=== PATIENT | male | born 1950 | race Caucasian/White ===

== ENCOUNTER 2019-04-26 09:29 | Outpatient (CLI) | payer MEDICARE, OTHER | END 2019-04-26 09:30 | disposition critical access hospital (66) | LOC: EMS 09:29 | PROVIDERS: ATTEND Surgery | DX: S09.93XA Unspecified injury of face, initial encounter (principal); R20.0 Anesthesia of skin; W01.0XXA Fall on same level from slipping, tripping and stumbling without subsequent striking against object, initial encounter; Y93.01 Activity, walking, marching and hiking; Y92.89 Other specified places as the place of occurrence of the external cause | CPT/HCPCS: A0425; A0429 ==

== ENCOUNTER 2019-04-26 09:34 | Emergency (ER) | payer MEDICARE, OTHER ==
--- NOTE | 2019-04-26 10:02 | ED Physician Documentation ---
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 No: LOC Contributing factors: No: Anticoagulated Similar symptoms before: Has not had sx before - Additional information Additional information: The patient is a 68-year-old male who arrives via ambulance after tripping while walking on the [facility], impacting his head on a piling. He did not lose consciousness, but reports that he "saw stars." Initially he experienced paralysis and paresthesias of his legs and hands. His symptoms have been gradually improving since the incident occurred about 1/2-hour prior to arrival. He denies headache or neck pain. Past surgical history is significant for spinal fusion of C5-T1. He has a nerve stimulator in place. He is visiting here from [place]. Review of Systems Constitutional: denies: Fever Eyes: denies: Decreased vision Ears: denies: Tinnitus/ringing Nose: denies: Congestion Throat: denies: Sore throat Cardiac: denies: Chest pain / pressure Respiratory: denies: Dyspnea, Cough GI: denies: Abdominal Pain, Nausea, Vomiting : denies: Dysuria, Incontinent Skin: reports: Abrasion (s) (nose) Musculoskeletal: reports: Extremity pain (elbows). denies: Neck pain, Back pain Neurologic: reports: Generalized weakness, Head injury. denies: Seizure, Confused, Headache, LOC PD PAST MEDICAL HISTORY - Present Medications Home Medications: Ambulatory Orders Medication Instructions Recorded Confirmed Aspirin 81 mg PO DAILY 04/26/19 04/26/19 Atorvastatin [Lipitor] 10 mg PO DAILY 04/26/19 04/26/19 Cetirizine [ZyrTEC] 10 mg PO DAILY 04/26/19 04/26/19 DULoxetine [Cymbalta] 60 mg PO DAILY 04/26/19 04/26/19 Omeprazole 40 mg PO DAILY 04/26/19 04/26/19 Oxybutynin [Ditropan] 5 mg PO DAILY 04/26/19 04/26/19 Pregabalin [Lyrica] 150 mg PO BID 04/26/19 04/26/19 Spironolactone 25 mg PO DAILY 04/26/19 04/26/19 - Allergies Allergies/Adverse Reactions: Allergies Allergy/AdvReac Type Severity Reaction Status Date / Time cephalexin Allergy Rash Verified 04/26/19 10:21 PD ED PE NORMAL - Vitals Vital signs reviewed: Yes (hypertensive) - General General: Alert and oriented X 3, Well developed/nourished, Other (Arrives on a backboard with cervical immobilization.) - HEENT HEENT: PERRL, EOMI, Ears normal, Pharynx benign, Other (There is dried blood on the face, having come from the nose. There is tenderness to palpation of the nasal bridge. There is no septal hematoma.) - Neck Neck: No bony TTP, No adenopathy, No JVD - Cardiac Cardiac: RRR - Respiratory Respiratory: No respiratory distress, Clear bilaterally, Other (No chest wall tenderness.) - Abdomen Abdomen: Soft, Non tender - Back Back: No CVA TTP, No spinal TTP - Derm Derm: No rash - Extremities Extremities: No tenderness to palpate, No edema, No calf tenderness / cord - Neuro Neuro: Alert and oriented X 3, roving tester laboratory 2-12 intact, Normal speech, Other (There is slightly decreased strength in the lower extremities, right slightly more than the left. There is slightly decreased light touch sensation, as well as slightly diminished strength, of his upper extremities.) Eye Opening: Spontaneous Motor: Obeys Commands Verbal: Oriented GCS Score: 15 Results - Vitals Vitals: Vital Signs - 24 hr 04/26/19 04/26/19 04/26/19 09:41 10:10 12:00 Temperature 36.0 C L Heart Rate 67 77 81 Respiratory 20 18 18 Rate Blood Pressure 152/88 H 146/88 H 131/77 H O2 Saturation 98 98 98 04/26/19 14:00 Temperature Heart Rate 71 Respiratory 18 Rate Blood Pressure 117/82 H O2 Saturation 100 Oxygen O2 Source Room air - EKG (time done) 10"03 Rate: Rate (enter#) (62) Rhythm: NSR [place]: Normal Intervals: Normal SD QRS: Normal Ischemia: Normal ST segments Computer interpretation: Agree with computer - Labs Labs: Laboratory Tests 09/30/19 09/30/19 10:10 10:10 WBC 8.3 RBC 5.02 Hgb 14.9 Hct 45.0 MCV 89.6 MCH 29.7 MCHC 33.1 RDW 13.4 Plt Count 212 MPV 9.9 Neut # (Auto) 5.5 Lymph # (Auto) 1.5 [place] # (Auto) 0.9 Eos # (Auto) 0.3 Baso # (Auto) 0.1 Absolute Nucleated RBC 0.00 Nucleated RBC % 0.0 Sodium 140 Potassium 4.5 Chloride 106 Carbon Dioxide 25 Anion Gap 9.0 BUN 21 H Creatinine 1.1 Estimated GFR (MDRD) 67 L Glucose 120 H Calcium 8.9 Total Bilirubin 1.0 AST 28 ALT 33 Alkaline Phosphatase 65 Total Protein 6.4 L Albumin 3.9 Globulin 2.5 Albumin/Globulin Ratio 1.6 Lipase 29 - Rads (name of study) Head CT Radiology: Prelim report reviewed, EMP read contemporaneously, See rad report (Comminuted nasal bone fracture. Otherwise negative examination. No intracranial abnormality.) CT C-spine Radiology: Prelim report reviewed, EMP read contemporaneously, See rad report (Question of a subtle fracture of osteophyte at the anterior base of C3. Elsewhere, degenerative changes are seen as above.) PD MEDICAL DECISION MAKING - ED course Complexity details: reviewed results, re-evaluated patient, considered differential, d/w patient, d/w family, d/w regional engagement consultant ED course: The patient's presentation is significant for fall with cervical hyperextension injury, with initial paralysis of all extremities. Although his neurologic deficits have greatly improved in the short time since the injury, he continues to have decreased strength in the bilateral upper and lower extremities, as well as decreased light touch sensatio in his hands. CT scan of his cervical spine reveals a possible stable osteophyte fracture at the base of C3, but no other acute bony abnormality. CT of his head reveals no acute intracranial abnormality, although it does reveal comminuted nasal bone fracture. Treatment in the emergency department included administration of morphine 4 mg IV. This improved the discomfort in her shoulders. I discussed the patient's condition with Dr. Lee, neurosurgeon at [facility]. He advises that the patient be transferred to [facility] for further evaluation and treatment. 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 Transfer forms were completed. On reexamination his neurologic deficits have continued to improve, with ability to move all extremities although with decreased strength. Light touch sensation remains mildly diminished in his hands. Prior to transfer the patient was administered Ativan 1 mg orally to help diminish his concern for claustrophobia in the back of the ambulance during transport to [facility]. Departure - Departure Disposition: 02 Transfer Acute Care Hosp Clinical Impression: Spinal cord contusion Fracture of nasal bone Qualifiers: Encounter type: initial encounter Fracture type: closed Qualified Code(s): S02.2XXA - Fracture of nasal bones, initial encounter for closed fracture Condition: Stable Discharge Date/Time: 04/26/19 15:15
[2019-04-26 10:15] LABS: BASOPHILS # (AUTO) 0.1 10^3/uL (0.0-0.1); BASOPHILS % (AUTO) 0.7 %; EOSINOPHILS # (AUTO) 0.3 10^3/uL (0.0-0.7); EOSINOPHILS % (AUTO) 3.6 %; HGB - HEMOGLOBIN 14.9 g/dL (14.0-18.0); LYMPHOCYTES # (AUTO) 1.5 10^3/uL (1.5-3.5); LYMPHOCYTES % (AUTO) 18.4 %; MEAN CORPUSCULAR HEMOGLOBIN 29.7 pg (27.0-31.0); MEAN CORPUSCULAR HGB CONC 33.1 g/dL (32.0-36.0); MEAN CORPUSCULAR VOLUME 89.6 fL (80.0-94.0); MEAN PLATELET VOLUME 9.9 fL (7.4-11.4); MONOCYTES # (AUTO) 0.9 10^3/uL (0.0-1.0); MONOCYTES % (AUTO) 10.2 %; NEUTROPHILS # (AUTO) 5.5 10^3/uL (1.5-6.6); NEUTROPHILS % (AUTO) 66.5 %; PLT - PLATELET COUNT 212 10^3/uL (130-450); RED BLOOD COUNT 5.02 10^6/uL (4.70-6.10); RED CELL DISTRIBUTION WIDTH 13.4 % (12.0-15.0); WHITE BLOOD COUNT 8.3 x10^3/uL (4.8-10.8)
[2019-04-26 10:29] LABS: ALBUMIN 3.9 g/dL (3.2-5.5); ALBUMIN/GLOBULIN RATIO 1.6 (1.0-2.2); CALCIUM 8.9 mg/dL (8.5-10.3); CREATININE 1.1 mg/dL (0.6-1.2); TOTAL PROTEIN 6.4 g/dL (6.7-8.2)
--- NOTE | 2019-04-26 11:01 | CT Report ---
Reason: Fall with head injury; improving partial paralysis Procedure Date: 04/26/2019 Accession Number: [id number] / [id number] Procedure: CT - CERVICAL SPINE WO CPT Code: FULL RESULT: EXAM: CT CERVICAL SPINE WITHOUT CONTRAST DATE: 04/26/2019 10:41 AM. HISTORY: Fall with head injury; improving partial paralysis. COMPARISONS: CERVICAL SPINE W/O 04/26/2019 10:18 AM HEAD W/O 04/26/2019 10:18 AM. TECHNIQUE: Thin-section axial images were acquired of the cervical spine without contrast. Post-processing: Coronal and sagittal reformats. Other: None. In accordance with CT protocol optimization, one or more of the following dose reduction techniques were utilized for this exam: automated exposure control, adjustment of mA and/or KV based on patient size, or use of iterative reconstructive technique. FINDINGS: No vertebral body height collapse or pathologic subluxation. Previous ACDF C6-C7 with spacer coils at C6-C7 and C7-T1. Tips of spinal stimulator wires dorsal spinal canal at the level of the base of the dens. There is a cortical step off involving an osteophyte at the anterior base of C3. This is seen on the sagittal images, series 8 image 45. This could represent an incomplete fracture of this osteophyte. No fractures detected elsewhere. There is mild to moderate anterior spinal canal narrowing secondary to posterior osteophytic spurring at C5-C6 and C6-C7. The neural foramina appear grossly patent. IMPRESSION: Question of a subtle fracture of osteophyte at the anterior base of C3. Elsewhere, degenerative changes are seen as above. RADIA
--- NOTE | 2019-04-26 11:04 | CT Report ---
Reason: Fall with head injury. Procedure Date: 04/26/2019 Accession Number: [id number] / [id number] Procedure: CT - HEAD WO CPT Code: FULL RESULT: EXAM: CT HEAD EXAM DATE: 04/26/2019 10:40 AM. CLINICAL HISTORY: Headache following fall. COMPARISON: CERVICAL SPINE W/O 04/26/2019 10:18 AM. TECHNIQUE: Multiaxial CT images were obtained from the foramen magnum to the vertex. Reformats: Sagittal and coronal. IV contrast: None. In accordance with CT protocol optimization, one or more of the following dose reduction techniques were utilized for this exam: automated exposure control, adjustment of mA and/or KV based on patient size, or use of iterative reconstructive technique. FINDINGS: Parenchyma: No intraparenchymal hemorrhage. No evidence of mass, midline shift, or CT findings of infarction. Suarez-white differentiation is distinct. Extraaxial Spaces: Normal for age. No subdural or epidural collections identified. Ventricles: Normal in size and position. Sinuses and Orbits: Bilateral anterior ethmoid opacification, possibly blood. No sphenoid sinus blood. Bones: There is a comminuted nasal bone fracture with mild depression. Other: None. IMPRESSION: 1. Comminuted nasal bone fracture. 2. Otherwise negative examination. No intracranial abnormality. RADIA
[2019-04-26] MEDS ORDERED: MORPHINE 2 MG/ML CARPUJECT IVP STA (14:12)
[2019-04-26 14:23] VITALS: BP 117/82
[2019-04-26] MEDS ORDERED: LORazepam 2 MG/ML VIAL IVP STA (15:02)
== END 2019-04-26 15:15 | disposition short-term general hospital (02) ==
LOC: EDBD → ED 09:34
DX: S14.109A Unspecified injury at unspecified level of cervical spinal cord, initial encounter (principal); R29.5 Transient paralysis; S02.2XXA Fracture of nasal bones, initial encounter for closed fracture; S00.31XA Abrasion of nose, initial encounter; W01.198A Fall on same level from slipping, tripping and stumbling with subsequent striking against other object, initial encounter; Y93.01 Activity, walking, marching and hiking; Y92.89 Other specified places as the place of occurrence of the external cause; M48.02 Spinal stenosis, cervical region; Z79.82 Long term (current) use of aspirin
CPT/HCPCS: 36415; 70450; 72125; 80053; 83690; 85025; 93005; 96374; 96375; 99284; 99285; J2060